=== PATIENT | male | born 1980 | race Caucasian/White ===

== ENCOUNTER 2017-01-14 21:56 | Emergency (ER) | payer MEDICAID, OTHER ==
[~2017-01-14] VITALS: Ht 172.7 cm; Wt 111.6 kg
[2017-01-14 22:09] VITALS: BP 161/111
--- NOTE | 2017-01-15 00:50 | NUR ---
TO ER BED 3
--- NOTE | 2017-01-15 00:58 | NUR ---
PATIENT PRESENTS TO ED WITH LT LOWER BACK PAIN AND RT KNEE PAIN . PT STATES THE KNEE PAIN RADIATES UP AND DOWN ENTIRE LEG . DENIES N/V/D; SKIN IS PINK/WARM/DRY; AAOX4 WITH EVEN AND STEADY GAIT; LUNGS CLEAR BL; HR EVEN AND REGULAR; PT DENIES ANY FEVER, CP, SOB, OR COUGH AT THIS TIME; PATIENT STATES PAIN OF 10/10 AT THIS TIME; VSS; PATIENT POSITIONED FOR COMFORT; HOB ELEVATED; BEDRAILS UP X2; BED DOWN. ER MD MADE AWARE OF PT STATUS. SIGNIFICANT OTHER AT BEDSIDE AT THIS TIME
[2017-01-15] MEDS ORDERED: ACETAMINOPHEN/CODEINE 300/30MG 1 TAB PO ONE (01:20)
[2017-01-15] MEDS ORDERED: KETOROLAC 30 MG/ML VIAL IM ONE (01:20)
--- NOTE | 2017-01-15 01:25 | NUR ---
PT TO XRAY AT THIS TIME
[2017-01-15] MEDS ORDERED: DIAZEPAM 5 MG TAB PO ONE (02:15)
[2017-01-15 02:35] VITALS: BP 147/101
--- NOTE | 2017-01-15 02:36 | NUR ---
Patient discharged with v/s stable. Written and verbal after care instructions given and explained. Patient alert, oriented and verbalized understanding of instructions. Ambulatory with steady gait. All questions addressed prior to discharge. ID band removed. Patient advised to follow up with PMD. Rx of VALIUM, NAPROSYN AND NORCO given. Patient educated on indication of medication including possible reaction and side effects. Opportunity to ask questions provided and answered. SIGNIFICANT OTHER AT BEDSIDE AT THIS TIME
== END 2017-01-15 02:35 | disposition home or self-care (01) ==
LOC: MED 21:56
DX: M25.561 Pain in right knee (principal); G89.29 Other chronic pain; M54.5 Low back pain
CPT/HCPCS: 72100; 73562; 81002; 96372; 99284; J1885

== ENCOUNTER 2021-06-26 21:24 | Emergency (ER) | payer OTHER ==
[~2021-06-26] VITALS: Ht 172.7 cm; Wt 105.7 kg
[2021-06-26 21:32] VITALS: BP 207/116
--- NOTE | 2021-06-26 21:35 | NUR ---
TO LOOBY A/W BED AMBULATORY
--- NOTE | 2021-06-26 23:29 | NUR ---
PT AMBULATED TO BED 08.
--- NOTE | 2021-06-26 23:40 | NUR ---
PT BIB SELF FOR C/C RIGHT SIDED NUMBNESS X 1 WEEK. PT REPORTS NUMBNESS AND TINGLING IS INTERMITTENT. DENIES PAIN. CAP REFILL < 3 SECONDS. AMBULATORY. DENIES N/V/D, FEVER, CHILLS, CP OR SOB. NO NOTED EDEMA. MED HX: DENIES ALLERGIES: NKA
--- NOTE | 2021-06-27 00:07 | NUR ---
ORAD MADE AWARE OF PTS BP 190/109.
[2021-06-27] MEDS ORDERED: hydrALAZINE 20 MG/ML VIAL IVP ONE (00:15)
--- NOTE | 2021-06-27 00:15 | NUR ---
ERMD AT BEDSIDE.
--- NOTE | 2021-06-27 00:20 | NUR ---
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
--- NOTE | 2021-06-27 00:24 | NUR ---
KRISHNA EMT, AT BEDSIDE FOR EKG.
[2021-06-27 00:28] LABS: BASOPHILS # (AUTO) 0.2 K/uL (0.00-0.22); BASOPHILS % (AUTO) 1.3 % (0.0-2.0); EOSINOPHILS # (AUTO) 0.1 K/uL (0-0.4); EOSINOPHILS % (AUTO) 0.9 % (0.0-4.0); HEMOGLOBIN 14.9 g/dL (12.0-18.0); LYMPHOCYTES # (AUTO) 3.6 K/uL (2.0-11.5); MEAN CORPUSCULAR HEMOGLOBIN 32 pg (27-31); MEAN CORPUSCULAR HGB CONC 34 g/dL (33-37); MEAN CORPUSCULAR VOLUME 94.4 fL (80-94); MONOCYTES # (AUTO) 0.6 K/uL (0.8-1.0); NEUTROPHILS # (AUTO) 7.3 K/uL (1.8-7.7); NEUTROPHILS % (AUTO) 61.8 % (42.2-75.2); PLATELET COUNT (AUTO) 261 K/uL (140-450); RED BLOOD CELL COUNT(AUTO) 4.66 MIL/uL (4.20-6.10); RED CELL DISTRIBUTION WIDTH 13.2 % (11.6-13.7); WHITE BLOOD COUNT (AUTO) 11.7 K/uL (4.8-10.8)
--- NOTE | 2021-06-27 00:30 | NUR ---
PT TAKEN TO CT AND XRAY VIA W.C.
[2021-06-27 00:47] LABS: ALBUMIN 4.2 g/dL (3.4-5.0); ANION GAP 12.8 (8-16); CARBON DIOXIDE 29.7 mmol/L (21-32); CHOL/HDL RATIO 3.5 (1-4.5); CREATININE 0.9 mg/dL (0.6-1.3); POTASSIUM 3.5 mmol/L (3.5-5.1); TOTAL BILIRUBIN 0.5 mg/dL (0.0-1.0)
[2021-06-27 00:53] LABS: CREATINE KINASE MB 5.2 ng/mL (0-3.6)
[2021-06-27] MEDS ORDERED: HYDR-39 PO (02:38)
[2021-06-27] MEDS ORDERED: lisinopriL 20 MG TAB PO ONE (02:40)
[2021-06-27] MEDS ORDERED: lisinopriL 20 MG TAB ONE (02:41)
[2021-06-27 02:53] VITALS: BP 156/67
--- NOTE | 2021-06-27 02:53 | NUR ---
Patient discharged with v/s stable. Written and verbal after care instructions given and explained. Patient alert, oriented and verbalized understanding of instructions. Ambulatory with steady gait. All questions addressed prior to discharge. ID band removed. Patient advised to follow up with PMD. Rx of LISINOPRIL given. Patient educated on indication of medication including possible reaction and side effects. Opportunity to ask questions provided and answered.
== END 2021-06-27 02:53 | disposition home or self-care (01) ==
LOC: MED 21:24
DX: I10 Essential (primary) hypertension (principal); Z79.899 Other long term (current) drug therapy
CPT/HCPCS: 36415; 70450; 71045; 80053; 80061; 82550; 82553; 83880; 84484; 85025; 85379; 93005; 96374; 99285; J0360

== ENCOUNTER 2022-01-14 17:06 | Emergency (ER) | payer OTHER ==
[~2022-01-14] VITALS: Ht 172.7 cm; Wt 108.4 kg
[~2022-01-14 17:06] MED LIST: HYDR-2853 PO
[2022-01-14 17:12] VITALS: BP 203/119
--- NOTE | 2022-01-14 17:23 | NUR ---
Patient ambulated with steady gait to bed 2.
--- NOTE | 2022-01-14 17:46 | NUR ---
PATIENT STATES HE HAS BEEN HAVING A HEADACHE AND HIGH BLOOD PRESSURE.. EATS HEALTHY MOST OF THE TIME, LOW SODIUM DIET, POSSIBLE HTN RUNS IN FAMILY
[2022-01-14] MEDS ORDERED: AMLO10TA PO (18:28)
[2022-01-14] MEDS ORDERED: amLODIPine 5 MG TAB PO ONE (18:30)
--- NOTE | 2022-01-14 19:19 | NUR ---
PATIENT BP STILL ELEVATED 187/107, INFORMED PATIENT TO WAIT AND RELAX FOR MEDICATION TO TAKE MORE EFFECT PRIOR TO DISCHARGE
--- NOTE | 2022-01-14 19:20 | NUR ---
REPORT RECEIVED FROM TORY CALDERON. CONTINUITY OF PT CARE AT THIS TIME.
--- NOTE | 2022-01-14 19:49 | NUR ---
PT LAYING IN BED LOCKED IN LOWEST POSITION W HOB BELEVATED. PT REPORTS HEADACHE HAS IMPROVED TO 3/10. PT DENIES ANY CHEST PAIN, SOB, BLURRY VISION, DIZZINESS, NAUSEA OR OTHER SYMPTOMS. PT CONNECTED TO MONITOR W BP 198/110 OTHERWISE VSS. ORAD AWARE OF PT STATUS. WILL CONTINUE TO MONITOR.
--- NOTE | 2022-01-14 19:59 | NUR ---
PER MARIANO CABRAL PT OK TO GO HOME W NORVASC PRESCRIPTION FOR BP AND FOLLOW UP W PCP AND PT OK FOR DISCHARGE W CURRENT VS AND BP OF 190/110.
[2022-01-14 20:05] VITALS: BP 187/107
--- NOTE | 2022-01-14 20:05 | NUR ---
Patient discharged with v/s stable. Written and verbal after care instructions given and explained. Patient alert, oriented and verbalized understanding of instructions. Ambulatory with steady gait. All questions addressed prior to discharge. ID band removed. Patient advised to follow up with PMD. Rx of NORVASC given. Patient educated on indication of medication including possible reaction and side effects. Opportunity to ask questions provided and answered.
== END 2022-01-14 20:05 | disposition home or self-care (01) ==
LOC: MED 17:06
DX: I10 Essential (primary) hypertension (principal); Z79.899 Other long term (current) drug therapy
CPT/HCPCS: 99283